=== PATIENT | female | born 1980 | race Caucasian/White ===

== ENCOUNTER 2025-02-06 07:11 | Emergency (ER) | payer BC, SELFPAY ==
[2025-02-06] VITALS (10 sets, daily range): BP systolic 114–155; BP diastolic 51–98; PULSE 67–108; RESP 14–18; TEMP 36.9; O2SAT 97–100
[2025-02-06 07:59] LABS: Basophils Percent Auto 0.8 % (0.2-1.2); Eosinophils Percent Auto 0.2 % (0-4.4); Hematocrit 41.7 % (37.0-47.0); Hemoglobin 14.2 g/dL (12.0-15.0); Immature Granulocyte Absolute 0.07 K/mm3 (0.00-0.031); Immature Granulocyte Percent A 1.3 % (0-0.5); Lymphocytes Absolute Auto 1.43 K/mm3 (0.9-3.2); Lymphocytes Percent Auto 27.5 % (18.3-44.2); Mean Corpuscular HGB Conc 34.1 g/dl (32-36); Mean Corpuscular Hemoglobin 30.7 pg (26-34); Mean Corpuscular Volume 90.1 fl (80-100); Mean Platelet Volume 10.7 fl (7.4-10.4); Monocytes Absolute Auto 0.5 K/mm3 (0.1-0.6); Neutrophils Absolute Auto 3.1 K/mm3 (1.3-6.7); Neutrophils Percent Auto 60.2 % (45.5-73.1); Platelet Count Result 169 k/mm3 (150-375); Red Blood Count 4.63 M/mm3 (4.2-5.4); White Blood Count 5.2 K/mm3 (4.5-10.0)
--- NOTE | 2025-02-06 08:00 | ECG_ITS ---
Test Date: 2025-02-06 07:56:53 Measurements Intervals [place] Rate: 74 P: 38 [place]: 140 QRS: 87 QRSD: 83 T: 56 QT: 389 QTc: 434 Interpretive Statements SINUS RHYTHM T-WAVE ABNORMALITY, CONSIDER ISCHEMIA Electronically Signed On 02-06-2025 14:01:52 CDT by Rangle Montes D.O
[2025-02-06 08:09] LABS: Alanine Aminotransferase 98 U/L (6-35); Albumin Level 4.4 g/dL (3.5-5.1); Alkaline Phosphatase 69 U/L (38-126); Anion Gap 10 mmol/L (4-12); Aspartate Amino Transferase 59 U/L (14-36); Bilirubin,Total 0.6 mg/dL (0.2-1.3); Blood Urea Nitrogen 7 mg/dL (7-17); Calcium 9.1 mg/dL (8.4-10.2); Carbon Dioxide 23 mmol/L (22-30); Chloride 107 mmol/L (98-107); Estimated CRCL calculation 91 ml/min; Estimated Glomerular Filt Rate > 60; Glucose 103 mg/dL (65-110); Potassium 3.9 mmol/L (3.4-5.0); Sodium 140 mmol/L (137-145)
[2025-02-06 08:25] LABS: Add Urine Microscopic? NO; Appearance Urine Clear (Clear); Bilirubin Urine Negative (Negative); Blood Urine Negative (Negative); Color Urine Yellow (Yellow); Glucose Urine UA Negative (Negative); Ketones Urine Trace mg/dL (Negative); Leukocyte Esterase Ur Negative LEU/UL (Negative); Nitrate Urine Negative (Negative); Protein Urine Negative (Negative); Specific Grav Ur 1.019 (1.001-1.035); Urobilinogen Urine 0.2 mg/dL (<2.0)
--- NOTE | 2025-02-06 08:48 | ED_ITS ---
HPI - General Adult General Chief complaint: Urogenital-Female Stated complaint: not feeling weel . hx of kidney issue Time Seen by Provider: 02/06/25 08:09 History of Present Illness HPI narrative: 44-year-old female with history of UPJ obstruction presented to the emergency department for evaluation for complaint of foggy headed and not feeling well. Patient did have some issues with tachycardia. Patient has been visiting from out of town and has been sleep deprived and dehydrated. Related Data Allergies Allergy/AdvReac Type Severity Reaction Status Date / Time No Known Allergies Allergy Verified 02/06/25 07:20 Review of Systems 2 Review of Systems: All systems reviewed & are unremarkable except as noted in HPI and below Exam 2 Narrative: APPEARANCE: Well appearing, no pain, no distress, well-nourished. HEAD: normocephalic, atraumatic. EYES: PERRLA/EOMI, conjunctivae clear. NOSE: Normal no drainage EARS:TMS clear with good light reflex. THROAT: Pharynx clear, no exudate. NECK: Supple. No adenopathy, no masses. RESPIRATORY: Airway patent, respirations nonlabored. Clear to auscultation bilaterally, no rales, rhonchi, wheezing. CARDIOVASCULAR: Regular rate and rhythm without murmurs rubs or gallops. ABDOMINAL: Soft, nontender, nondistended, normal bowel sounds MUSCULOSKELETAL: Moves all extremities. Strength/ROM intact, No edema, No calf tenderness. NEURO: Alert. Cranial nerves II through XII intact. Good gait. Good coordination SKIN: Warm, dry. Normal Color Course Vital Signs Vital signs: Vital Signs Pulse Rate 85 02/06/25 07:18 Respiratory Rate 18 02/06/25 07:18 Blood Pressure 136/98 H 02/06/25 07:18 Pulse Oximetry 97 02/06/25 07:18 Oxygen Delivery Room Air 02/06/25 07:18 Temperature 98.5 F 02/06/25 08:14 Pulse Rate 75 02/06/25 12:05 Respiratory Rate 14 02/06/25 12:05 Blood Pressure 122/80 02/06/25 12:05 Pulse Oximetry 99 02/06/25 12:05 Oxygen Delivery Room Air 02/06/25 07:18 Medical Decision Making [facility] Narrative Medical decision making narrative: 44-year-old female presents emergency department for evaluation for low lightheadedness and fatigue. Patient is currently afebrile with no leukocytosis hemoglobin of 14.2. Patient's D-dimer was not elevated. No acute abnormalities on the patient's CMP UA was negative for infection. Patient was negative for influenza RSV and for COVID. Patient's initial orthostatic vital signs were positive. Patient was treated with 2 L of IV saline and patient felt improved along improved orthostatic vital signs Differential Diagnosis Differential Diagnosis: Dehydration, COVID, RSV, influenza, pulmonary embolism, orthostatic hypotension, pneumonia Vital Signs Vital Signs: Vital Signs Pulse Rate 85 02/06/25 07:18 Respiratory Rate 18 02/06/25 07:18 Blood Pressure 136/98 H 02/06/25 07:18 Pulse Oximetry 97 02/06/25 07:18 Oxygen Delivery Room Air 02/06/25 07:18 Temperature 98.5 F 02/06/25 08:14 Pulse Rate 75 02/06/25 12:05 Respiratory Rate 14 02/06/25 12:05 Blood Pressure 122/80 02/06/25 12:05 Pulse Oximetry 99 02/06/25 12:05 Oxygen Delivery Room Air 02/06/25 07:18 Lab Data Lab results reviewed: Yes I reviewed the patient's lab results. 02/06/25 07:55 02/06/25 07:55 Labs: Lab Results 02/06/25 02/06/25 02/06/25 Range/Units 07:55 08:01 08:49 WBC 5.2 (4.5-10.0) K/mm3 RBC 4.63 (4.2-5.4) M/mm3 Hgb 14.2 (12.0-15.0) g/dL Hct 41.7 (37.0-47.0) % MCV 90.1 (80-100) fl MCH 30.7 (26-34) pg MCHC 34.1 (32-36) g/dl RDW 12.0 (11.5-14.5) % Plt Count 169 (150-375) k/mm3 MPV 10.7 H (7.4-10.4) fl Immature Gran % (Auto) 1.3 H (0-0.5) % Neut % (Auto) 60.2 (45.5-73.1) % Lymph % (Auto) 27.5 (18.3-44.2) % Mckinley % (Auto) 10.0 H (2.6-8.5) % Eos % (Auto) 0.2 (0-4.4) % Baso % (Auto) 0.8 (0.2-1.2) % Lymph # (Auto) 1.43 (0.9-3.2) K/mm3 Mckinley # (Auto) 0.5 (0.1-0.6) K/mm3 Eos # (Auto) 0.0 (0-0.3) K/mm3 Baso # (Auto) 0.0 (0.0-0.1) K/mm3 Abs Immat Gran (auto) 0.07 H (0.00-0.031) K/mm3 Absolute Neuts (auto) 3.1 (1.3-6.7) K/mm3 Absolute Nucleated RBC 0.000 (0.0-0.012) K/mm3 Nucleated RBC % 0.0 (0.0-0.2) % D-Dimer < 0.27 (<0.48) ug/mL Sodium 140 (137-145) mmol/L Potassium 3.9 (3.4-5.0) mmol/L Chloride 107 (98-107) mmol/L Carbon Dioxide 23 (22-30) mmol/L Anion Gap 10 (4-12) mmol/L BUN 7 (7-17) mg/dL Creatinine 0.74 (0.7-1.0) mg/dL Estim Creat Clear Calc 91 ml/min Estimated GFR > 60 (59 - ) Glucose 103 (65-110) mg/dL Calcium 9.1 (8.4-10.2) mg/dL Total Bilirubin 0.6 (0.2-1.3) mg/dL AST 59 H (14-36) U/L ALT 98 H (6-35) U/L Alkaline Phosphatase 69 (38-126) U/L Total Protein 7.0 (6.3-8.2) g/dL Albumin 4.4 (3.5-5.1) g/dL Urine Color Yellow (Yellow) Urine Appearance Clear (Clear) Urine pH 8.0 (5.0-9.0) Ur Specific [place] 1.019 (1.001-1.035) Urine Protein Negative (Negative) mg/dL Urine Glucose (UA) Negative (Negative) mg/dL Urine Ketones Trace H (Negative) mg/dL Ur Blood (Man) Negative (Negative) Urine Nitrate Negative (Negative) Urine Bilirubin Negative (Negative) Urine Urobilinogen 0.2 (<2.0) mg/dL Leukocyte Esterase Rfl Negative (Negative) JAMES/UL Influenza A (RT-PCR) (Negative) Influenza B (RT-PCR) (Negative) RSV (RT-PCR) (Negative) SARS-CoV-2 RNA (RT-PCR) (Negative) 02/06/25 Range/Units 08:50 WBC (4.5-10.0) K/mm3 RBC (4.2-5.4) M/mm3 Hgb (12.0-15.0) g/dL Hct (37.0-47.0) % MCV (80-100) fl MCH (26-34) pg MCHC (32-36) g/dl RDW (11.5-14.5) % Plt Count (150-375) k/mm3 MPV (7.4-10.4) fl Immature Gran % (Auto) (0-0.5) % Neut % (Auto) (45.5-73.1) % Lymph % (Auto) (18.3-44.2) % Mckinley % (Auto) (2.6-8.5) % Eos % (Auto) (0-4.4) % Baso % (Auto) (0.2-1.2) % Lymph # (Auto) (0.9-3.2) K/mm3 Mckinley # (Auto) (0.1-0.6) K/mm3 Eos # (Auto) (0-0.3) K/mm3 Baso # (Auto) (0.0-0.1) K/mm3 Abs Immat Gran (auto) (0.00-0.031) K/mm3 Absolute Neuts (auto) (1.3-6.7) K/mm3 Absolute Nucleated RBC (0.0-0.012) K/mm3 Nucleated RBC % (0.0-0.2) % D-Dimer (<0.48) ug/mL Sodium (137-145) mmol/L Potassium (3.4-5.0) mmol/L Chloride (98-107) mmol/L Carbon Dioxide (22-30) mmol/L Anion Gap (4-12) mmol/L BUN (7-17) mg/dL Creatinine (0.7-1.0) mg/dL Estim Creat Clear Calc ml/min Estimated GFR (59 - ) Glucose (65-110) mg/dL Calcium (8.4-10.2) mg/dL Total Bilirubin (0.2-1.3) mg/dL AST (14-36) U/L ALT (6-35) U/L Alkaline Phosphatase (38-126) U/L Total Protein (6.3-8.2) g/dL Albumin (3.5-5.1) g/dL Urine Color (Yellow) Urine Appearance (Clear) Urine pH (5.0-9.0) Ur Specific [place] (1.001-1.035) Urine Protein (Negative) mg/dL Urine Glucose (UA) (Negative) mg/dL Urine Ketones (Negative) mg/dL Ur Blood (Man) (Negative) Urine Nitrate (Negative) Urine Bilirubin (Negative) Urine Urobilinogen (<2.0) mg/dL Leukocyte Esterase Rfl (Negative) JAMES/UL Influenza A (RT-PCR) Negative (Negative) Influenza B (RT-PCR) Negative (Negative) RSV (RT-PCR) Negative (Negative) SARS-CoV-2 RNA (RT-PCR) Negative (Negative) Discharge Plan Discharge Clinical Impression: Orthostatic hypotension Patient Disposition: Home, Self-Care Condition: Stable Instructions: Antibiotic Form, Hypotension (DC) Additional Instructions: Drink plenty of fluids. Have close follow-up with your primary care physician. If you have any worsening symptoms then please call or return to the emergency department Patient Language: Nauruan Follow-up/Referrals: PHYSICIAN,ENLISTED ADVISOR [Non-Staff] -
--- OUTSIDE RECORDS SUMMARY | 2025-02-06 08:59 | XMS_ITS | Encounter Summary ---
Author Organization [facility] Address [address] [place] [address] Phone Care Team Providers Care [employer] Principal Name Role Phone Fred Pineda MD Primary Care Provider Encounter Details Date Type Department Care Team (Late st Contact Info) Description 08/21/2022 Telephone [facility] 1st Floor Gastroenterology [address] [place], [place] [id number] Donna Burdick APRN [address] [place], [place] [id number] Social History Tobacco Use Types Packs/Day Years Used Date Smoking Tobacco: Never Smokeless Tobacco: Never Comments Unknown Sex and Gender Information Value Date Recorded Sex Assigned at Not on file Legal Sex Female 9:28 AM CDT Gender Identity Not on file Sexual Orientation Not on file COVID-19 Exposure Response Date Recorded In the last 10 days, have yo u been in contact with someone who was confirmed or suspected to have Coronavirus/COVID-19? No / Unsure 08/21/2022 9:37 AM CDT documented as of this encounter Miscellaneous Notes * Telephone Encounter - Donna Burdick APRN - 09/04/2022 4:17 PM CDT EGD with gastritis otherwise normal * Telephone Encounter - Scarlett López - 08/21/2022 1:48 PM CDT Received requested notes. Placed in your mailbox for review. * Telephone Encounter - Galina Garcia - 08/21/2022 11:58 AM CDT Request for below faxed. * Telephone Encounter - Donna Burdick APRN - 08/21/2022 11:47 AM CDT Can we please request barium swallow and EGD results from 2019 from [facility] in [facility]? documented in this encounter Plan of Treatment Not on file documented as of this encounter Visit Diagnoses Not on filedocumented in this encounter Care Teams [employer] Principal Relationship Specialty Start Date End Date Fred Pineda MD [address] [address] PCP - General Hospitalist Service 08/09/22 documented as of this encounter
--- OUTSIDE RECORDS SUMMARY | 2025-02-06 08:59 | XMS_ITS | Encounter Summary ---
Author Organization [facility] Address [address] [place] [address] Phone Care Team Providers Care Set Staff Fitter Name Role Phone Fred Pineda MD Primary Care Provider [phone] Encounter Details Date Type Department Care Team ([facility] st Contact Info) Description 08/09/2022 Telephone [facility] 1st Floor Gastroenterology [address] [place], [place] [address] Nurse, [facility] Gastroenterology [address] [place], [place] [id number] Social History Tobacco Use Types Packs/Day Years Used Date Smoking Tobacco: Never Assessed Comments Unknown Sex and Gender Information Value Date Recorded Sex Assigned at Not on file Legal Sex Female 9:28 AM CDT Gender Identity Not on file Sexual Orientation Not on file documented as of this encounter Miscellaneous Notes * Telephone Encounter - Scarlett López - 08/09/2022 9:29 AM CDT Please review consultation referral. Dx: Chronic GERD Referring physician: Fred Pineda Location of notes: Fax Box documented in this encounter Plan of Treatment Not on file documented as of this encounter Visit Diagnoses Not on filedocumented in this encounter Care Teams Set Staff Fitter Relationship Specialty Start Date End Date Fred Pineda MD [facility] [address] [place] [address] PCP - General Hospitalist Service 9/16/22 documented as of this encounter
--- OUTSIDE RECORDS SUMMARY | 2025-02-06 08:59 | XMS_ITS | Encounter Summary ---
Author Organization [facility] Address [address] [place] [address] Phone Care Team Providers Care Senior Linux Systems Engineer Name Role Phone Fred Pineda MD Primary Care Provider [phone] Encounter Details Date Type Department Care Team (Late st Contact Info) Description 10/18/2022 Telephone [facility] 1st Floor Gastroenterology [address] [place], [place] [phone] Donna Burdick APRN [address] [place], [place] [id number] Social History Tobacco Use Types Packs/Day Years Used Date Smoking Tobacco: Never Smokeless Tobacco: Never Comments Unknown Sex and Gender Information Value Date Recorded Sex Assigned at Not on file Legal Sex Female 9:28 AM CDT Gender Identity Not on file Sexual Orientation Not on file documented as of this encounter Miscellaneous Notes * Telephone Encounter - Galina Garcia - 10/21/2022 12:23 PM CST LVM WORKER * Telephone Encounter - Donna Burdick APRN - 10/18/2022 2:38 PM EGG WORKER Follow up is recommended 2-3 weeks after procedure because we need pathology and the more resultesto be processed and read. So the absolute earliest that would be appropriate is November 07 at either 8am or 4pm. Otherwise she should keep the . WORKER * Telephone Encounter - Scarlett López - 10/18/2022 11:40 AM CST Pt asking to be seen sooner than 11/15 for post procedure follow up. Can we split a Consult to get her in sooner? WORKER WORKER * Telephone Encounter - Dayan Vincent LPN - 10/18/2022 11:35 AM EGG WORKER Please call patient to schedule return office visit after uppe endoscopy on 10/18/22 thanks WORKER documented in this encounter Plan of Treatment Not on file documented as of this encounter Visit Diagnoses Not on filedocumented in this encounter Care Teams Senior Linux Systems Engineer Relationship Specialty Start Date End Date Fred Pineda MD [facility] [address] [place] [address] PCP - General Hospitalist Service 08/09/22 documented as of this encounter
--- OUTSIDE RECORDS SUMMARY | 2025-02-06 08:59 | XMS_ITS | Encounter Summary ---
Author Organization [facility] Address [address] [place] [address] Phone Care Team Providers Care Supervising Broker Name Role Phone Fred Pineda MD Primary Care Provider [phone] Encounter Details Date Type Department Care Team ([facility] st Contact Info) Description 10/28/2022 Telephone [facility] 1st Floor Gastroenterology [address] [place], [place] [address] Jayla Mensah DO Social History Tobacco Use Types Packs/Day Years Used Date Smoking Tobacco: Never Smokeless Tobacco: Never Comments Unknown Sex and Gender Information Value Date Recorded Sex Assigned at Not on file Legal Sex Female 9:28 AM CDT Gender Identity Not on file Sexual Orientation Not on file documented as of this encounter Miscellaneous Notes * Telephone Encounter - Garland Rivera - 10/28/2022 1:54 PM CST Call to home number listed and [facility]. AR SENT LTTER. HOUSE ATTENDANT * Telephone Encounter - Garland Rivera - 10/28/2022 11:48 AM CST CALL PT TO RESCHEDULE EGD CANCELED TODAY HOUSE ATTENDANT documented in this encounter Plan of Treatment Not on file documented as of this encounter Visit Diagnoses Not on filedocumented in this encounter Care Teams Supervising Broker Relationship Specialty Start Date End Date Fred Pineda MD [facility] [address] [place] [address] PCP - General Hospitalist Service 08/09/22 documented as of this encounter
--- OUTSIDE RECORDS SUMMARY | 2025-02-06 08:59 | XMS_ITS | Encounter Summary ---
Author Organization [facility] Address [address] [place] [address] Phone Care Team Providers Care Sorting Machine Operator Name Role Phone Fred Pineda MD Primary Care Provider [phone] Encounter Details Date Type Department Care Team (Late st Contact Info) Description 10/28/2022 Telephone [facility] 1st Floor Gastroenterology [address] [place], [place] [phone] Harman Gutiérrez MD [address] [place], [place] [phone] Social History Tobacco Use Types Packs/Day Years Used Date Smoking Tobacco: Never Smokeless Tobacco: Never Comments Unknown Sex and Gender Information Value Date Recorded Sex Assigned at Not on file Legal Sex Female 9:28 AM CDT Gender Identity Not on file Sexual Orientation Not on file documented as of this encounter Miscellaneous Notes * Telephone Encounter - Garland Rivera - 10/28/2022 10:50 AM CST PT IS SICK CANCELED FOR TOMORROW NEEDS TO RESCHEDULE CIATE PROPERTY MANAGER documented in this encounter Plan of Treatment Not on file documented as of this encounter Visit Diagnoses Not on filedocumented in this encounter Care Teams Sorting Machine Operator Relationship Specialty Start Date End Date Fred Pineda MD [facility] [address] [place] [address] PCP - General Hospitalist Service 08/09/22 documented as of this encounter
--- OUTSIDE RECORDS SUMMARY | 2025-02-06 08:59 | XMS_ITS | Clinical Summary ---
Author Organization [facility] Address [address] [place] [address] Phone Care Team Providers Care Artillery Officer Name Role Phone Fred Pineda MD Primary Care Provider Allergies No known active allergies Medications GI cocktail oral solution USE 10 ML BY MOUTH EVERY 4 HOURS NEEDED FOR PAIN 07/30/2022 Active busPIRone 10 mg tablet Take 10 mg by mouth 2 (two) times daily 07/23/2022 Active cabergoline 0.5 mg tablet Take 0.5 mg by mouth 2 (two) times a week 08/20/2022 Active FLOVENT HFA 110 mcg/actuation inhaler Take 2 puffs inhaled by mouth 2 (two) times daily 08/05/2022 Active pantoprazole (PROTONIX) 40 mg tablet Take 40 mg by mouth 2 (two) times daily 07/30/2022 Active Active Problems No known active problems Social History Tobacco Use Types Packs/Day Years Used Date Smoking Tobacco: Never Smokeless Tobacco: Never Tobacco Cessation:Counseling Given: Not Answered Interpersonal Safety Answer Date Record ed Feels unsafe at home, work, or school Not on gisella e 08/31/2023 Feels threatened by someone Not on file 06/2023 Witholding contact with othe rs or doing things outside of your home Not on file 08/31/2023 Physical Abuse Not on file 08/31/2023 Comments Unknown Sex and Gender Information Value Date Recorded Sex Assigned at Not on file Legal Sex Female 9:28 AM CDT Gender Identity Not on file Sexual Orientation Not on file Last Filed Vital Signs Vital Sign Reading Time Taken Comments Blood Pressure 108/73 01/14/2023 11:37 AM SALES FORECAST ANALYST Pulse 84 01/14/2023 11:37 AM SALES FORECAST ANALYST Temperature 36.1 C (97 F) 01/14/2023 11:37 AM SALES FORECAST ANALYST Respiratory Rate 17 01/14/2023 11:37 AM SALES FORECAST ANALYST Oxygen Saturation 96% 01/14/2023 11:37 AM SALES FORECAST ANALYST Inhaled Oxygen Concentration - - Weight 70.3 kg (155 lb) 01/14/2023 9:53 AM SALES FORECAST ANALYST Height 170.2 cm (5' 7 ) 01/14/2023 9:53 AM SALES FORECAST ANALYST Body Mass Index 24.28 01/14/2023 9:53 AM SALES FORECAST ANALYST Plan of Treatment Health Maintenance Due Date Last Done Comments Diagnostic Colonoscopy 1979 MMR Vaccines (1 of 1 - Standard series) 1980 Depression Screening 1991 DTaP/Tdap/Td Vaccines (1 - Tdap) 1998 Hepatitis B Vaccines (1 of 3 - 19+ 3-dose series) 1998 Lipid Panel 1999 Pap Smear 2000 Cervical Cancer Screening 2009 HPV/Co-Testing 2009 Screening for Diabetes 2014 Breast Cancer Screening 2019 CT Colonography 2024 Colorectal Cancer Screening 2024 FIT-DNA (Cologuard) 2024 Fecal Immunochemical Testing (FIT) 2024 Fecal Occult Blood (FOBT) 2024 Flexible Sigmoidoscopy 2024 Screening Colonoscopy 2024 COVID-19 Vaccine (2023-2 5 season) 2024 08/01/2021, 06/09/2021 Influenza Vaccine (#1) 2024 HIB Vaccines Aged Out No longer eligi ble based on patient's age to complete this topic HPV Vaccines Aged Out No longer eligi ble based on patient's age to complete this topic Hepatitis A Vaccines Aged Out No long er eligible based on patient's age to complete this topic IPV Vaccines Aged Out No longer eligi ble based on patient's age to complete this topic Meningococcal Vaccine (ACWY) Aged Out No longer eligible based on patient's age to complete this topic Pneumococcal Vaccines (0-64 Years) Aged Out No longer eligible b ased on patient's age to complete this topic Rotavirus Vaccines Aged Out No longer eligible based on patient's age to complete this topic Insurance BLUE [employer]OSS BLUE [facility] Cross Blue Shield Commercial (POS, PPO, etc) Address: [place] [address] [employer]UE [employer]UE [facility] Cross Blue Shield Commercial (POS, PPO, etc) Address: [facility] [id number] [place] [phone] Care Teams Artillery Officer Relationship Specialty Start Date End Date Fred Pineda MD [facility] [address] [place] [address] PCP - General Hospitalist Service 08/09/22
--- OUTSIDE RECORDS SUMMARY | 2025-02-06 08:59 | XMS_ITS | Clinical Summary ---
Author Organization [facility] Address [address] [place] [address] Care Team Providers Care Outboard Motors Experimental Mechanic Name Role Phone Gasper Montaño NP Primary Care Provider [phone] Allergies No known active allergies Social History Tobacco Use Types Packs/Day Years Used Date Smoking Tobacco: Never Assessed Sex and Gender Information Value Date Recorded Sex Assigned at Not on file Gender Identity Not on file Sexual Orientation Not on file Plan of Treatment Health Maintenance Due Date Last Done Comments HIV Screening 1979 Hepatitis C Screening ages 18 to 79 once 1979 MMR VACCINES (1 of 1 - Standard series) 1980 YEARLY WELLNESS EXAM 1982 DEPRESSION SCREENING 1991 ADULT TETANUS 1998 HEPATITIS B VACCINES (1 of 3 - 19+ 3-dose series) 1998 CERVICAL CANCER SCREENING 2000 BREAST CANCER SCREENING 2019 Colon Cancer Screening 2024 LIPID TESTING 2024 Influenza Vaccine 06/24/2024 10/07/2023, , 09/13/2020, Additional history exists COVID-19 Immunization ( season) 2024 Zoster Vaccine (Recombinant Vaccine) (1 of 2) 2029 HEPATITIS A VACCINES Aged Out No long er eligible based on patient's age to complete this topic HIB VACCINES Aged Out No longer eligi ble based on patient's age to complete this topic HPV VACCINES Aged Out No longer eligi ble based on patient's age to complete this topic IPV VACCINES Aged Out No longer eligi ble based on patient's age to complete this topic MENINGOCOCCAL VACCINE Aged Out No alfonso dalia eligible based on patient's age to complete this topic Pneumococcal Vaccine: Peds(0 to 5 Years) & At-Risk Patients (6 to 64 Years) Aged Out No longer eligi ble based on patient's age to complete this topic ROTAVIRUS VACCINES Aged Out No longer eligible based on patient's age to complete this topic Care Teams Outboard Motors Experimental Mechanic Relationship Specialty Start Date End Date Gasper Montaño NP [address] [place] [address] PCP - General Nurse Practitioner 08/27/24
[2025-02-06] MEDS: LACTATED RINGERS 1,000 ML 999 ML IV CONT (09:22)
[2025-02-06 09:35] LABS: Influenza A QL RT-PCR Negative (Negative); Influenza B QL RT-PCR Negative (Negative); RSV RNA, RT-PCR Negative (Negative); SARS-CoV-2 RNA PCR Negative (Negative)
[2025-02-06 09:45] LABS: D Dimer < 0.27 ug/mL (<0.48)
[2025-02-06] MEDS: SODIUM CHLORIDE 0.9% IV 1,000 ML 999 ML IV CONT (10:09)
== END 2025-02-06 12:08 | disposition home or self-care (01) ==
PROVIDERS: Emergency Provider Emergency Medicine
DX: I95.1 Orthostatic hypotension (principal); Z11.59 Encounter for screening for other viral diseases
CPT/HCPCS: 36415; 80053; 81003; 85025; 85380; 87637; 93005; 96360; 99284; J7030; J7120